=== PATIENT | female | born 1940 | race Caucasian/White ===

== ENCOUNTER → 2017-04-16 | Outpatient (CLI) | payer OTHER ==
--- NOTE | 2017-04-16 09:21 | RAD ---
Examination: Chest, PA and lateral views History: Upper abdominal pain Findings: Normal heart size, arteriosclerotic calcification in the aortic arch. The lungs and pleural spaces are clear. There is an epidural device in the mid thoracic spinal canal. Bilateral shoulder a rthropathy identified, with surgical hardware in the proximal left humerus. Impression: No acute chest disease identified. Aortic arteriosclerosis. Postsurgical findings. Reported By:
--- NOTE | 2017-04-16 09:22 | RAD ---
Examination: KUB History: Mid abdominal pain Findings: Normal intestinal gas pattern. There is no evidence for mass formation, ascites or patholog ic calcification. Surgical clips are present in the right upper abdomen. An electronic generator nevaeh ce is projected over the left flank. There is a moderate lumbar scoliosis with degenerative changes. Impression: No acute abdominal process identified. Postsurgical findings. Reported By:
== END ==
LOC: RAD 08:41
PROVIDERS: ATTEND Nurse Practitioner
DX: R10.33 Periumbilical pain (principal)
CPT/HCPCS: 71020; 74000